=== PATIENT | male | born 1950 | race Caucasian/White ===

== ENCOUNTER 2024-01-31 09:00 | Outpatient (CLI) | payer MEDICARE, SELFPAY ==
--- NOTE | 2024-01-31 | IMM_PTH ---
PATIENT: MARCELA KRISHNA LOC: [facility] U#:[id number] AGE/SX: 73/M ROOM: RE01/31/[address]: Dr. Elroy Garrison MD : 1950 BED: DIS: 01/31/2024 SPEC #: [id number] RECD: 02/01/24 14:23 STATUS: SALMA REQ #: [id number] YEE: 01/31/24 00:[address]: Elroy Garrison DEPT: IMMUNOHISTOCHEMISTRY RECD BY: Jarrod Kurtz ENTERED: 02/01/24 14:27 SP TYPE: IMMUNO OTHR DR: Dr. Lele Mitchell MD Tissues: Subcutaneous tissue of jaw Procedures: BCL-2 (add) BCL-6 (add) CD10 (add) CD138 (add) CD15 (add) CD20 (add) CD23 (add) CD3 (add) CD30 (add) CD43 (add) CD45 (add) CD5 (add) CD79A (add) CYCLIN (add) KAPPA (add) KI-67 (add) LAMBDA (add) MPO (add) P53 (add) MUM1 (add) C-MYC (add) Pankeratin (initial) PHYSICIAN & INSTITUTION [place] [address] SPECIMEN INFORMATION: Tissue Source: Left submandibular mass Clinical Info: Left submandibular mass Specimen Number: [id number] CPT code: 59699,[id number] METHODOLOGY: Deparaffinized sections of prefer/formalin-fixed tissue or PAP/DQ stained slides are incubated with monoclonal/polyclonal antibodies/oligonucleotide probes. Localization is made via biotin free immunoperoxidase method. Appropriate controls are performed and reacted as expected. Results on target cell population are indicated in the following table: RESULTS: ANTIBODY / CLONE RESULT AE1-3 (AE1/AE3/PCK26) negative CD3 (PS1) positive CD5 (SP10) positive CD20 (L26) positive CD43 (L60) positive CD45 (RP2/18) positive CD79a (11E3) positive CD138 (B-A38) negative [place] (polyclonal) negative Lambda (polyclonal) negative CD10 (56C6) negative CD15 (MMA) negative CD23 (1B12) negative CD30 (Eber-H2) negative BCL-2 (bcl-2/100/D5) negative BCL-6 (WS678F/A8) negative Cyclin D1/BCL-1 (SP4) negative MUM1 (MRQ-43) negative C-MYC (Y69) negative MPO (polyclonal) negative P53 (DO-7) negative, null pattern Ki-67 (30-9) positive,30 % These tests were developed and their performance characteristics determined by [facility]. They may not have been cleared or approved by the U.S. Food and Drug Administration. The FDA has determined that such clearance or approval is not necessary. The above immunohistochemical/dualISH markers are ordered and reviewed by the Pathologist. INTERPRETATION: Left submandibular mass, fine needle aspiration; Atypical lymphocytic population, See comment. AM/mr 02/04/2024 Comment: Prominent B-cell staining favors a B-cell lymphoma. Clinical correlation necessary.
--- NOTE | 2024-01-31 10:00 | ASPOS_PTH ---
PATIENT: MARCELA KRISHNA LOC: [facility] U#:[id number] AGE/SX: 73/M ROOM: RE01/31/[address]: Dr. Elroy Garrison MD : 1950 BED: DIS: 01/31/2024 SPEC #: [id number] RECD: 01/31/24 11:28 STATUS: LOWELL PRINCE #: [id number] YEE: 01/31/24 10:[address]: Elroy Garrison DEPT: CYTOLOGY RECD BY: Cortney Curtis ENTERED: 01/31/24 11:29 SP TYPE: ASP HERE OTHR DR: Dr. Lele Mitchell MD Tissues: Mandible, NOS Procedures: Surgery Specimen Level IV Cytology Other Fine Needle Asp on Site ADDENDUM ADDENDUM ADDENDUM 04/29/2024 13:38 ADDENDUM 04/29/2024 13:38 ADDENDUM 04/29/2024 13:38 ADDENDUM 04/29/2024 13:38 ADDENDUM 04/29/2024 13:38 The above diagnosis is in compliance with the 5th edition of the World Health Organization Classification of Haematolymphoid Tumours: Lymphoid Neoplasms. Leukemia 35, 2145-0890 (2021)
== END 2024-01-31 15:00 | disposition home or self-care (01) ==
LOC: LAB 07-02 13:15
PROVIDERS: PCP Family Medicine; Referring Provider Otolaryngology; Visit Provider Otolaryngology
DX: C85.11 Unspecified B-cell lymphoma, lymph nodes of head, face, and neck (principal)
CPT/HCPCS: 10021; 88161; 88305; 88341; 88342

== ENCOUNTER → 2024-02-08 | Outpatient (CLI) | payer MEDICARE, SELFPAY ==
--- NOTE | 2024-02-08 14:39 | CT_ITS ---
STUDY: CT SOFT TISSUE NECK WITH CONTRAST REASON FOR EXAM: Male, 73 years old. SWELLING, MASS, LUMP ON NECK RADIATION DOSAGE (If Supplied By Facility): CTDIvol = ( 16.38 ) mGy, DLP = ( 531.90 ) mGycm TECHNIQUE: The patient was scanned in a multi-detector CT scanner. High resolution transaxial imaging was performed following intravenous administration of IV 75mL Isovue-370. Sagittal and coronal images were reconstructed. Individualized dose optimization techniques were used for this CT. COMPARISON: None. FINDINGS: Normal bilateral parotid glands. Normal bilateral dispatcher maintenance service spaces. Normal bilateral parapharyngeal spaces. Normal bilateral carotid spaces. Normal bilateral sublingual and submandibular glands and spaces. Normal visualized nasopharynx. Normal retropharyngeal space. Normal perivertebral space. Normal visualized bilateral faucial tonsils. The visualized tongue, tongue base and oropharynx are normal. Enlarged bilateral cervical lymph nodes more prominent on the left side. The largest lymph node is in the left submental region and measures 2.1 cm x 2 cm. Bilateral supraclavicular lymphadenopathy. There is no abnormal contrast enhancement. Normal epiglottis, bilateral vallecula and hypopharynx. The pre-epiglottic and paraglottic adipose spaces are normal. Normal visualized bilateral piriform sinuses, aryepiglottic folds, vocal cords, and arytenoid-cricoid articulations. Normal subglottic trachea. Normal bilateral lobes of the thyroid gland. Normal visualized pulmonary apices. Normal visualized paranasal sinuses. There is multilevel degenerative changes of the cervical spine. CT/Soft Tissue Neck WITH Contrast IMPRESSION: Bilateral cervical lymphadenopathy in the submental regions of the neck. There is also evidence of bilateral supraclavicular lymphadenopathy. Electronically Signed: Alfonso Lee MD at 15:06 EDT ,
[2024-02-08 15:07] LABS: CREATININE FINGERSTICK < 1.0 mg/dL (0.70-1.30); EGFR FINGERSTICK > 60.0000 mL/min (>60)
== END | disposition home or self-care (01) ==
PROVIDERS: PCP Family Medicine; Referring Provider Otolaryngology; Visit Provider Otolaryngology
DX: R22.1 Localized swelling, mass and lump, neck (principal)
CPT/HCPCS: 70491; Q9967

== ENCOUNTER → 2024-02-21 | Outpatient (CLI) | payer MEDICARE, SELFPAY ==
[2024-02-21 14:19] LABS: Absolute Lymphocyte Count 1.15 X10^3/uL (0.83-4.51); Absolute Neutrophil Count 4.1 X10^3/uL (2.0-7.7); Basophil# 0.07 X10^3/uL; Basophil% 1.1 % (0-1); Eosinophil# 0.27 X10^3/uL; Eosinophils% 4.2 % (0-5); Hematocrit 46.4 % (40-54); Hemoglobin 15.4 g/dL (13.0-16.5); Lymphocyte # 1.15 X10^3/ul (0.83-4.51); Lymphocyte % 18.1 % (19-41); Mean Corp Hgb Conc 33.2 g/dL (32-36); Mean Corpuscular Hgb 29.4 pg (27.0-32.0); Mean Corpuscular Volume 88.5 fL (80-94); Monocyte# 0.75 X10^3/uL; Monocyte% 11.8 % (0-10); NRBC Flagged by Analyzer 0 % (0-5); Neutrophil # 4.07 X10^3/uL (2.7-7.7); Platelet Count 157 K/mm3 (150-450); RBC Distribution Width CV 14.1 % (11.6-14.6); RBC Distribution Width SD 45.1 fl (35.1-43.9); Red Blood Count 5.24 M/mm3 (4.6-6.2); White Blood Count 6.4 K/mm3 (4.4-11.0)
[2024-02-21 15:23] LABS: Anion Gap 5 (5-15); BUN 17 mg/dL (7-18); Calcium,Total 9.2 mg/dL (8.5-10.1); Chloride 109 mmol/L (98-107); Creatinine, Serum 1.13 mg/dL (0.70-1.30); EST Glomerular Filtration Rate 67 mL/min (>60); Est Glom Filt Rate - Afr Amer 82 mL/min (>60); Glucose 101 mg/dL (74-106); PSA,Total - Annual Screen 4.15 ng/mL (0.00-4.00); Potassium 3.8 mmol/L (3.5-5.1); Sodium Level 141 mmol/L (136-145)
== END | disposition home or self-care (01) ==
PROVIDERS: PCP Family Medicine; Referring Provider Otolaryngology; Visit Provider Otolaryngology
DX: Z01.810 Encounter for preprocedural cardiovascular examination (principal); Z12.5 Encounter for screening for malignant neoplasm of prostate
CPT/HCPCS: 36415; 80048; 84153; 85025; 93005; G0103

== ENCOUNTER → 2024-02-26 | Outpatient (CLI) | payer MEDICARE, SELFPAY ==
--- NOTE | 2024-02-26 | IMM_PTH ---
PATIENT: MARCELA KRISHNA LOC: [facility] U#:[id number] AGE/SX: 73/M ROOM: RE02/26/[address]: Dr. Elroy Garrison MD : 1950 BED: DIS: 02/26/2024 SPEC #: [id number] RECD: 02/28/24 11:36 STATUS: SALMA REQ #: [id number] YEE: 02/26/24 00:[address]: Elroy Garrison DEPT: IMMUNOHISTOCHEMISTRY RECD BY: Jarrod Kurtz ENTERED: 02/28/24 11:38 SP TYPE: IMMUNO OTHR DR: Dr. Lele Mitchell MD Tissues: Neck, NOS Procedures: BCL-2 (add) BCL-6 (add) CD10 (add) CD20 (add) CD23 (add) CD3 (add) CD43 (add) CD45 (add) CD5 (add) CD79A (add) CK8 (add) CYCLIN (add) KI-67 (add) Pankeratin (initial) PHYSICIAN & [address] [address] SPECIMEN INFORMATION: Tissue Source: Left neck mass Clinical Info: Localized swelling, mass and lump, neck, Unspecified B-cell lymphoma, lymph nodes of head, face and neck Specimen Number: [id number] CPT code: 39051,06294v44 METHODOLOGY: Deparaffinized sections of prefer/formalin-fixed tissue or PAP/DQ stained slides are incubated with monoclonal/polyclonal antibodies/oligonucleotide probes. Localization is made via biotin free immunoperoxidase method. Appropriate controls are performed and reacted as expected. Results on target cell population are indicated in the following table: RESULTS: ANTIBODY / CLONE RESULT AE1-3 (AE1/AE3/PCK26) negative CK8 (77eamoM21) negative CD3 (PS1) negative CD5 (SP10) positive CD20 (L26) positive CD43 (L60) positive CD45 (RP2/18) positive CD79a (11E3) positive CD10 (56C6) negative CD23 (1B12) negative BCL-2 (bcl-2/100/D5) positive BCL-6 (UZ623T/A8) negative Cyclin D1/BCL-1 (SP4) negative Ki-67 (30-9) positive, moderate These tests were developed and their performance characteristics determined by [facility]. They may not have been cleared or approved by the U.S. Food and Drug Administration. The FDA has determined that such clearance or approval is not necessary. The above immunohistochemical/dualISH markers are ordered and reviewed by the Pathologist. 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 SJ/mr 02/29/2024 Comment: Case has been reviewed in consultation with Dr. Garza who concurs with the above diagnosis. IDC:[id number]
--- NOTE | 2024-02-26 11:50 | LYMN_PTH ---
PATIENT: MARCELA KRISHNA LOC: [facility] U#:[id number] AGE/SX: 73/M ROOM: RE02/26/[address]: Dr. Elroy Garrison MD : 1950 BED: DIS: 02/26/2024 SPEC #: [id number] RECD: 02/26/24 15:19 STATUS: SALMA PRINCE #: [id number] YEE: 02/26/24 11:[address]: Elroy Garrison DEPT: SURGICAL PATHOLOGY RECD BY: Anna Rhodes ENTERED: 02/27/24 10:59 SP TYPE: LYMPH NODE OTHR DR: Dr. Lele Mitchell MD [facility] Tissues: LYMPH NODE BIOPSY Procedures: Special Stain Group II Surgery Specimen Level IV Imprint (control) HEADER OPERATION: Left excision neck mass PRE-OP DIAGNOSIS: Localized swelling, mass and lump, neck, Unspecified B-cell lymphoma, lymph nodes of head, face and neck TISSUE SUBMITTED: Left neck mass MICROSCOPIC DIAGNOSIS Left neck mass, excision biopsy: Consistent with low grade non-Hodgkin B-cell Lymphoma, favor marginal zone lymphoma. See comment. MISSAEL/ 02/29/2024 COMMENT The specimen is evaluated at the time of touch imprints by Dr. Johnson. Immediate Evaluation = Numerous lymphocytes are noted. Immunohistochemistry ([id number]) supports the above diagnosis. Specimen also shows partial involvement by lymphoma, focal areas show preserved lymph node architecture. Flow cytometric study from [facility] shows B-cell lymphoma, CD5 negative/ CD10 negative. The complete report is viewable in the patient's EMR. Please make also make reference to previous specimen [id number] with diagnosis of consistent with B-cell lymphoma. This case has been reviewed in consultation with Dr. Garza who concurs with the above diagnosis. MICROSCOPIC DESCRIPTION Slides are reviewed. GROSS DESCRIPTION Received fresh for lymphoma protocol labeled with the patient's name is a specimen designated Left neck mass. The specimen consists of are multiple pieces of morales soft tissue measuring in aggregate 1.5 x 1.0 x 0.3. A piece is submitted for flow cytometric study. Two touch imprints are prepared at the time of core biopsy. The entire specimen is submitted in one cassette. MISSAEL/ 02/27/24 TC:0 [facility]: [id number] ADDENDUM ADDENDUM ADDENDUM 04/29/2024 15:11 ADDENDUM 04/29/2024 15:11 ADDENDUM 04/29/2024 15:11 ADDENDUM 04/29/2024 15:11 ADDENDUM 04/29/2024 15:11 The above diagnosis is in compliance with the 5th edition of the World Health Organization Classification of Haematolymphoid Tumours: Lymphoid Neoplasms. Leukemia 35, 7610-8031 (2021)
== END | disposition home or self-care (01) ==
LOC: LABSPEC 15:31
PROVIDERS: PCP Family Medicine; Referring Provider Otolaryngology; Visit Provider Otolaryngology
DX: R22.1 Localized swelling, mass and lump, neck (principal); C85.11 Unspecified B-cell lymphoma, lymph nodes of head, face, and neck
CPT/HCPCS: 88305; 88313; 88341; 88342